=== PATIENT | female | born 1925 | race Hispanic/Latino ===

== ENCOUNTER 2016-05-09 08:53 | Day surgery (SDC) | payer MEDICARE ==
[2016-05-04 11:27] VITALS: BMI 20.1
[2016-05-09] MEDS ORDERED: Bupivacaine 0.5% Inj(30mL) ONE (10:26)
[2016-05-09] MEDS ORDERED: Propofol 10 mg/ml Inj (20 ML) ONE (12:36)
[2016-05-09] MEDS ORDERED: HYDROmorphone 0.5 mg/0.5 ml ISec IVP PRN (14:16)
--- NOTE | 2016-05-09 14:20 | PCM.SURG1 ---
Surgeon's Initial Post Op Note - Surgeon's Notes Surgeon: Dr. Harrington Copy Center Operator: Dr. Newberry PGY-2, Dr. Goldstein PGY-1 Type of Anesthesia: General Endo Pre-Operative Diagnosis: b/l breast cancer Operative Findings: see operative report Post-Operative Diagnosis: same Operation Performed: Bilateral partial mastectomy Specimen/Specimens Removed: b/l breast mass Estimated Blood Loss: EBL {In ML}: 10 Blood Products Given: N/A Drains Used: No Drains Post-Op Condition: Good Date of Surgery/Procedure: 05/09/16 Time of Surgery/Procedure: 14:21
[2016-05-09] MEDS ORDERED: Oxycodone/Acetaminophen 5/325 mg Tab PO PRN (14:21)
[2016-05-09] MEDS ORDERED: Lactated Ringer's 1,000 ML IV SCH ×2 (14:30→16:30)
[2016-05-09] MEDS ORDERED: HYDROmorphone 0.5 mg/0.5 ml ISec ONE (14:46)
--- NOTE | 2016-05-09 17:07 | NM ---
PROCEDURE: Preop sentinel node injection HISTORY: pre op sentinel node COMPARISON: None TECHNIQUE: Standard protocol for this study/examination. FINDINGS: Dosimetry: 0.8 mCi technetium 99 M sulfur colloid administered subcutaneously per institutional protocol. IMPRESSION: Image documentation following sentinel node injections.
--- NOTE | 2016-05-09 21:46 | CP.PCM.PCO ---
Physician Communication Note - Physician Communication Note Physician Communication Note: Unable to go home alone/Rx Overnight Extended Observation
[2016-05-10 08:40] VITALS: BP 147/85; PULSE 92; RESP 20; TEMP 98.1; O2SAT 98
--- NOTE | 2016-05-11 07:58 | OP ---
PROCEDURE DATE: 05/09/2016 ROOM: [facility] SURGEON: Tc Harrington MD FIELD BROOMER: Jyoti Newberry DO, PGY-2 SECOND GRANT OFFICER: Storm Hou DO, PGY-1 THERAPY DIRECTOR: Guero Ramsey MD ANESTHESIA: General - LMA - Marcaine 0.5, 20 mL. PREOPERATIVE DIAGNOSES: 1. Bilateral breast cancer. 2. Right is infiltrating ductal invasive. 3. Left is infiltrating lobular invasive. PROCEDURES: 1. Bilateral partial mastectomy. 2. Aborted sentinel node biopsy. OPERATIVE INDICATION: The patient is an 89-year-old female who found a 2 cm mass in the 12 o'clock position of her right breast above the areolar edge and underwent mammography and ultrasonog micheal demonstrating a 7.8 mm lesion in the 8 o'clock position of the left breast. These lesions were subsequently biopsied by the mammography team and were found to be infiltrating ductal invasive canc er on the right and infiltrating lobular cancer invasive on the left. Both were estrogen and progest erone positive with HER2/brian negative. She has undergone PET-CT scanning and the lesions are the onl y thing found without any evidence of metastasis. It should be mentioned at this time that the patie nt has an absence of axillary palpable adenopathy. Extensive discussion was held with the patient ov er a period of several weeks regarding her management desires, and she is insistent that she not unde rgo a mastectomy or any mutilating procedure at all. She has refused oncology medical evaluation but did see the radiation oncologist, Dr. Saqib Huizar at the [place] radiation facility who recommended posto perative radiation pending the operative findings. She is presently on Arimidex 1 mg daily and will continue on same, and is here for bilateral lumpectomies with sentinel node aspirations. OPERATIVE NOTE: The patient is brought to the operating room after having been seen and injected in the radiation nuclear facility just prior to the surgery. She has been injected with radionuclide te chnetium and the imaging demonstrates tracer traversed towards each axilla and no uptake in the inter nal mammary node. The patient described she had 8 injections. Following the induction of general anesthesia and the insertion of an endotracheal tube, the entire c hest wall and axilla bilaterally are prepped with Hibiclens/chlorhexidine preparation and aseptically draped. The patient has undergone a timeout procedure at the beginning of the placement on the tabl e. The patient is now aseptically draped and the nuclear probe is placed over the breast and demonstrate s high level markings at the 6 o'clock position on each breast and appears absent at other locations except for a trail very easily diminishing several centimeters from the nipple. There is an absence of pickup in both axillae despite extensive examination at this point. It is elected at this point t o wait until after the removal of the tumors and again reexamine for the sentinel nodes. A circumareolar incision is made on the right breast from 9 o'clock to 3 o'clock above the nipple at the areolar edge, and sharp dissection is carried out through the subcutaneous tissues to the breast tissue below. The breast is elevated on Allis clamps and hemostasis is contained with cautery, and a flap is raised with the cautery scalpel and the tumor is encountered, grasped with Solange clamps and widely excised using the cautery scalpel for dissection and hemostasis. The specimen is completely removed and submitted to pathology in formalin at this point. The wound is now packed with dry gauze and hemostasis contained with electrocoagulating current cautery as needed. While the gauze is left in place, attention is drawn to the left breast where the nonpalpable nodule is noted. A circumareo lar incision made from 9 o'clock to 4 o'clock position below the nipple at the areolar edge, and the same dissection carried on through the subcutaneous tissues to the breast tissue below. Hemostasis i s contained with cautery. The quadrant containing the lesion is removed in the lower inner section o f the breast. The tiny nodule and marking clip are palpable and these are removed in a similar jaquelin r utilizing the electrocautery scalpel for dissection and hemostasis. Both specimens are placed in f ormalin in separate containers and marked right and left and submitted to pathology for permanent sec tion analysis. Both wounds are lavaged with saline solution until return is considered clear and hem ostasis is confirmed. The breast is closed with subcutaneous interrupted 3-0 Polysorb suture and subcuticular closure of 4- 0 Biosyn absorbable suture. Infiltration of the incisions is employed bilaterally for postoperative analgesia, and the skin is closed with further Steri-Strips and Dermabond adhesive. Both axillae are now examined serially with the gamma counter and show absolutely no pickup of radion uclide. This confirms the preoperative CAT scanning and ultrasonography of absence of any lymphadeno shahrzad, and the tracer imaging on the radiation facility scanner also failed to show any radioactive u ptake. It is elected at this point to abort the blind dissection of an attempted sentinel node. The PET sca nning demonstrates absence of any SUV uptake in the breast or anywhere else other than within the christiana ast tissue itself. Dry dressings were applied to both incisions. A binder is placed over same. The patient is awakened , extubated and transported to the recovery room in a satisfactory condition. Sponge, instrument and suture count were verified as correct at the end of the procedure. Estimated blood loss during this procedure was less than 20 mL of blood total. The surgical assistants were present throughout the entire procedure and were extremely helpful in pr oviding exposure and in removing the tumors, particularly on the left side where it was not immediate ly palpable. This dictation will be electronically signed without being read. Tc Harrington MD cc: [id number] TT: 05/11/2016 07:57:58 sherlyn
== END 2016-05-10 10:58 | disposition home or self-care (01) ==
LOC: SDS 08:53 → 3RSO 18:09 → SDS 05-10 10:58
PROVIDERS: ATTEND Surgery
DX: C50.911 Malignant neoplasm of unspecified site of right female breast (principal); C50.912 Malignant neoplasm of unspecified site of left female breast; Z17.0 Estrogen receptor positive status [ER+]
CPT/HCPCS: 19301; 36415; 78195; 86850; 86900; 88307; A9541; J0690; J1170; J2405; J2704; J3010; J7120 ×2